=== PATIENT | male | born 2000 | race Caucasian/White ===

== ENCOUNTER 2023-06-29 17:44 | Emergency (ER) | payer BC ==
[~2023-06-29] VITALS: Ht 170.2 cm; Wt 67.1 kg
[2023-06-29 17:53] VITALS: BP 138/74; PULSE 97; RESP 18; TEMP 97.1; O2SAT 98
[2023-06-29 19:01] VITALS: BP 138/74; PULSE 97; RESP 18; TEMP 97.1; O2SAT 98
== END 2023-06-29 19:01 | disposition home or self-care (01) ==
LOC: MED 17:44
DX: S09.90XA Unspecified injury of head, initial encounter (principal); W22.8XXA Striking against or struck by other objects, initial encounter; Y93.89 Activity, other specified; Y92.89 Other specified places as the place of occurrence of the external cause; Y99.8 Other external cause status
CPT/HCPCS: 70450; 99284